=== PATIENT | male | born 1945 | race Caucasian/White ===

== ENCOUNTER 2023-10-02 13:00 | Outpatient (RCR) | payer MEDICARE, OTHER, SELFPAY | END 2023-10-02 14:19 | disposition home or self-care (01) | LOC: HO.PTCHIC 13:00 | PROVIDERS: PCP Physician Assistant; Visit Provider Orthopaedic Surgery | DX: S72.002D Fracture of unspecified part of neck of left femur, subsequent encounter for closed fracture with routine healing (principal) | CPT/HCPCS: 97110; 97112; 97140; 97161; 97530 ==

== ENCOUNTER 2024-08-22 11:14 | Outpatient (AMB) | payer MEDICARE, OTHER, SELFPAY ==
--- NOTE | 2024-08-22 11:15 | A.OFFVIS_ITS ---
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 Pt states he had UTI and bladder scans done, which is what prompted testing. 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 This all began as a CT abdomen and pelvis with and without contrast for gross hematuria. At that time who was found to have diffuse urinary bladder in addition he had renal artery stenosis along with occlusion of the aorta. This was on CAT scan dated 07/16/2024. He reports that he quit smoking approximately 15 years ago and at that time was smoking a proximally a half a pack per day. He is a longstanding diabetic. In addition there was concern about renal artery stenosis. At the current time he is being maintained on 3 blood pressure medications but appears to be well controlled as at the time of our visit his blood pressure was 116/60. In terms of his peripheral vascular disease he endorses that he can walk a proximally a half a block prior to any significant difficulty. He has been attributing most of this to knee pain. He now presents to us for vascular evaluation. Of note he is being maintained on aspirin and high-dose statin. Review of Systems Const All systems reviewed & are unremarkable except as noted in HPI and below Reports no additional complaints ENT Reports Normal hearing present Card Denies chest pain, Denies chest pain at rest, Denies chest pain with activity and Denies pedal edema Resp Denies cough GI Denies abdominal pain Musc Denies abnormal gait, Denies muscle cramps and Denies radiating pain into limb Skin/Breast Denies skin ulcer and Denies wounds Neuro Reports Normal hearing present and Denies abnormal gait Psych Reports no additional complaints Physical Exam Vital Signs: BMI result Body Mass Index 27.4 Const General: cooperative, healthy appearing and comfortable Orientation/consciousness: oriented to person, oriented to place and oriented to time HEENT Head: Yes normal to inspection Neck Neck: Yes normal visual inspection Carotids: no bruits Chest Chest palpation & inspection: normal inspection of the chest Resp Effort & Inspection: normal respiratory effort and able to speak in complete sentences Auscultation: clear to auscultation bilaterally, no crackles, no rales, no rhonchi and no wheezes Cardio Other: Bilateral DP signals Rate: regular rate Rhythm: regular rhythm Heart sounds: S1 normal heart sound present and S2 normal heart sound present Bruits: no carotid bruits Peripheral pulses: Peripheral pulses 2+ throughout GI Inspection: Yes normal to inspection Skin Wounds: no wounds Hair: normal Neuro General: oriented to person, oriented to place and oriented to time Cranial nerves: Yes CN's II-XII intact bilaterally and Yes Normal hearing present Cognition (Neuro): normal cognition Motor exam (neuro): 5/5 motor strength present throughout Extrem Other: venous exam: No significant superficial varicosities or spider telangiectasias, minimal edema General: No clubbing, No cyanosis and No edema Psych Appearance: grossly normal Mental Status: mental status grossly normal Speech and movement: Normal speech and movement present Results Reviewed Results Reviewed: CT scan report from 07/16/2024 written report and images were reviewed. Example PIC is attached above Assessment & Plan Assessment & Plan (1) Aortoiliac occlusive disease: Code(s): I74.09 - Other arterial embolism and thrombosis of abdominal aorta Category: Medical Plan: The biggest concern here is the aortoiliac occlusive disease. It does appear he has compensated for this but is able to walk about a half a block at most. He was quite anxious about this overall situation and was quite inquisitive about the future steps and potential surgery. We did discuss basic risk factor modification. In addition we did discuss the importance of ambulation and getting steps in daily. Upon return I would like to get a better sense of the true distance of his claudication and we did discuss keeping a walking log. He will follow up with us after lower extremity arterial testing. (2) PAD (peripheral artery disease): Code(s): I73.9 - Peripheral vascular disease, unspecified Category: Medical Plan: It is clear that the patient has inflow disease. I have taken the liberty of ordering noninvasive arterial testing to ensure that he does not have significant outflow disease as well. I did review the pathophysiology of peripheral vascular disease with the patient. In addition we did discuss routine conservative measures including a healthy diet and the importance of exercise and ambulation. We did discuss risk factor modification. Once again the patient will follow up with us after testing (3) Renal artery stenosis: Code(s): I70.1 - Atherosclerosis of renal artery Category: Medical Plan: At the current time his renal artery stenosis appears to be at a stable point. His blood pressure is being maintained at 116/60. He is currently being maintained on 3 antihypertensives including amlodipine 10 mg lisinopril 40 mg and metoprolol 50 mg b.i.d.. At the current time will hold off on any interventions until we get a better picture regarding his peripheral vascular disease status. Thank you for allowing us to assist in his care. If there are any questions or concerns please do not hesitate to contact us. Orders: Orders 2 US arterial duplex LE BI 1 Week I73.9 - Peripheral vascular disease, unspecified Coding Level of Care Code New Pt Level 4 (79075) Complex EM visit Add On G2211 Diagnoses Aortoiliac occlusive disease I74.09 PAD (peripheral artery disease) I73.9 Renal artery stenosis I70.1
[2024-08-22 11:16] VITALS: BMI 27.4
== END 2024-08-22 12:33 | disposition home or self-care (01) ==
LOC: HO.HVS 11:14
PROVIDERS: PCP Physician Assistant; Visit Provider Surgery Vascular Surgery
DX: I74.09 Other arterial embolism and thrombosis of abdominal aorta (principal); I73.9 Peripheral vascular disease, unspecified; I70.1 Atherosclerosis of renal artery
CPT/HCPCS: 99204; G2211

== ENCOUNTER → 2024-08-22 11:14 | Outpatient (BNVA) | payer MEDICARE, OTHER, SELFPAY | PROVIDERS: PCP Physician Assistant; Visit Provider Surgery Vascular Surgery | DX: I74.09 Other arterial embolism and thrombosis of abdominal aorta (principal); I73.9 Peripheral vascular disease, unspecified; I70.1 Atherosclerosis of renal artery | CPT/HCPCS: 99202 ==

== ENCOUNTER 2024-10-02 13:46 | Outpatient (REF) | payer MEDICARE, OTHER, SELFPAY ==
--- NOTE | ~2024-10-02 | US_ITS ---
EXAMINATION: Noninvasive assessment of the bilateral lower extremities with ARTERIAL DUPLEX, ANKLE BRACHIAL INDICES (ABIs), and PULSE VOLUME RECORDINGS (PVRs). CLINICAL INFORMATION: Peripheral vascular disease, unspecified. TECHNIQUE: Duplex Doppler techniques with waveform analysis and measurement of velocities in the bilateral common femoral, profunda femoris, superficial femoral, popliteal and tibial arteries were performed. Additionally, ankle pulse volume recordings, ankle pressure measurements and ankle brachial indices were obtained of the lower extremity arterial system bilaterally. The study was performed only at rest. COMPARISON: None FINDINGS: DIRECT DUPLEX DOPPLER FINDINGS: RIGHT LEG: Common femoral artery: 77 cm/s, phasicity: Monophasic. Profunda femoris artery: 205 cm/s, phasicity: Monophasic. Superficial femoral artery (proximal): 42 cm/s, phasicity: Monophasic. Superficial femoral artery (mid): 31 cm/s, phasicity: Monophasic. Superficial femoral artery (distal): 20 cm/s, phasicity: Monophasic. Popliteal artery: 13 cm/s, phasicity: Monophasic. Posterior tibial artery: 15 cm/s, phasicity: Monophasic. Peroneal artery: No color Doppler flow registered. Anterior tibial artery: 24 cm/s, phasicity: Monophasic. Dorsalis pedis artery: 13 cm/s, phasicity:Monophasic. LEFT LEG: Common femoral artery: 40 cm/s, phasicity: Monophasic. Profunda femoris artery: 24 cm/s, phasicity: Monophasic. Superficial femoral artery (proximal): 50 cm/s, phasicity: Monophasic. Superficial femoral artery (mid): 75 cm/s, phasicity: Monophasic. Superficial femoral artery (distal): 29 cm/s, phasicity: Monophasic. Popliteal artery: 28 cm/s, phasicity: Monophasic. Posterior tibial artery: 11 cm/s, phasicity: Monophasic. Peroneal artery: No color Doppler flow registered. Anterior tibial artery: 15 cm/s, phasicity: Monophasic. Dorsalis pedis artery: 6 cm/s, phasicity: Monophasic. BRACHIAL PRESSURES: Right: Nondiagnostic/nonaudible. Left: Nondiagnostic/nonaudible. ANKLE PRESSURES: Nondiagnostic/nonaudible. ANKLE-BRACHIAL INDEX: Nondiagnostic/nonaudible. ANKLE PVR WAVEFORMS: Right: Abnormal Left: Abnormal US/US arterial duplex BI w/ ABBIE IMPRESSION: Right leg: Severe inflow disease throughout the interrogated arteries. Left leg: Severe inflow disease throughout the interrogated arteries. ABBIE Reference: - >1.4 = calcified vessels - 0.9 - 1.4 = normal - no significant arterial disease - 0.7 - 0.89 = mild peripheral arterial disease - 0.51 - 0.69 = moderate peripheral arterial disease - d 0.50 = severe peripheral arterial disease - < .30 = critical arterial disease Electronically signed by: Hardeep Lozano MD 10/03/2024 09:14 AM EDT
--- OUTSIDE RECORDS SUMMARY | 2024-10-02 15:39 | XMS_ITS | Encounter Summary ---
Author Organization [facility], Address [address] [place] [address] Phone Care Team Providers Care Community Service Manager Name Role Phone JabariParis Primary Care Provider [phone] Encounter Details Date Type Department Care Team (Late st Contact Info) Description 03/09/2023 Documentation Only [facility] [address] [place] [phone] Eduardo Antonio MD [address] [place] [address] [place] [address] Social History Tobacco Use Types Packs/Day Years Used Date Smoking Tobacco: Never Assessed Sex and Gender Information Value Date Recorded Sex Assigned at Not on file Legal Sex Male 3:29 PM EDT Gender Identity Not on file Sexual Orientation Not on file documented as of this encounter Plan of Treatment Upcoming Encounters Date Type Department Care Team (Late st Contact Info) Description 09/05/2025 10:30 AM EDT Office Visit [facility] [address] [place] [phone] Eduardo Antonio MD [address] [place] [address] [place] [address] documented as of this encounter Visit Diagnoses Not on filedocumented in this encounter Care Teams Community Service Manager Relationship Specialty Start Date End Date [address] [place] [address] PCP - General 09/05/24 documented as of this encounter
== END 2024-10-02 13:47 | disposition home or self-care (01) ==
LOC: HO.US 13:46
PROVIDERS: Visit Provider Surgery Vascular Surgery
DX: I73.9 Peripheral vascular disease, unspecified (principal)
CPT/HCPCS: 93922; 93925

== ENCOUNTER → 2024-10-02 13:48 | Outpatient (BNV) | payer MEDICARE, OTHER, SELFPAY | PROVIDERS: Visit Provider Radiology Diagnostic Radiology | DX: I73.9 Peripheral vascular disease, unspecified (principal) | CPT/HCPCS: 93922; 93925 ==

== ENCOUNTER 2024-10-29 13:02 | Outpatient (AMB) | payer MEDICARE, OTHER, SELFPAY ==
--- NOTE | 2024-10-29 13:12 | A.OFFVIS_ITS ---
Intake Visit Reasons: follow up s/p Arterial US 10/02/24 Intake Note: Patient presents for s/p arterial US. No complaints. Accompanied by: Self / Same As Patient Allergies amoxicillin (AMOXICILLIN) Allergy (Unknown, Verified 10/29/24 13:13) ANGIOEDEMA Penicillins (PENICILLINS) Allergy (Unknown, Verified 10/29/24 13:13) ANGIOEDEMA HPI HPI follow up s/p Arterial US 10/02/24: Details: Very complex 79-year-old female presents for follow-up evaluation regarding peripheral vascular disease. She has undergone noninvasive testing. She had a previous CT of the abdomen and pelvis without contrast for gross hematuria. At that time they were concerned about renal artery stenosis along with aortic occlusive disease. She reports quitting smoking about 15 years ago in his longstanding diabetic. Current time she is requiring 3 blood pressure medications. She requires the use of walker to ambulate. She is on an aspirin and high-dose statin. She now presents for follow-up. Of note she can barely walk a half a block Review of Systems Const All systems reviewed & are unremarkable except as noted in HPI and below Reports no additional complaints ENT Reports Normal hearing present Card Denies chest pain, Denies chest pain at rest, Denies chest pain with activity and Denies pedal edema Resp Denies cough GI Denies abdominal pain Musc Denies abnormal gait, Denies muscle cramps and Denies radiating pain into limb Skin/Breast Denies skin ulcer and Denies wounds Neuro Reports Normal hearing present and Denies abnormal gait Psych Reports no additional complaints Physical Exam Const General: cooperative, healthy appearing and comfortable Orientation/consciousness: oriented to person, oriented to place and oriented to time HEENT Head: Yes normal to inspection Neck Neck: Yes normal visual inspection Carotids: no bruits Chest Chest palpation & inspection: normal inspection of the chest Resp Effort & Inspection: normal respiratory effort and able to speak in complete sentences Auscultation: clear to auscultation bilaterally, no crackles, no rales, no rhonchi and no wheezes Cardio Other: Bilateral DP signals Rate: regular rate Rhythm: regular rhythm Heart sounds: S1 normal heart sound present and S2 normal heart sound present Bruits: no carotid bruits GI Inspection: Yes normal to inspection Skin Wounds: no wounds Hair: normal Neuro General: oriented to person, oriented to place and oriented to time Cranial nerves: Yes CN's II-XII intact bilaterally and Yes Normal hearing present Cognition (Neuro): normal cognition Motor exam (neuro): 5/5 motor strength present throughout Extrem Other: venous exam: No significant superficial varicosities or spider telangiec tasias, minimal edema General: No clubbing, No cyanosis and No edema Psych Appearance: grossly normal Mental Status: mental status grossly normal Speech and movement: Normal speech and movement present Results Reviewed Results Reviewed: Noninvasive arterial testing dated 10/02/2024 demonstrates bilateral monophasic flow. They were unable to calculate ABIs. Assessment & Plan Assessment & Plan (1) PAD (peripheral artery disease): Code(s): I73.9 - Peripheral vascular disease, unspecified Category: Medical Plan: I had an extensive discussion with the patient regarding the extent of her peripheral vascular disease. I do think it would be beneficial to start with an endovascular intervention in at least evaluation. It would enable me to better visualize the renals along with lower extremities and potentially intervene on the iliacs. He spent a fair amount of time explaining this to the patient. At the current time she politely refused treatment. She stated she had several other issues going on and was in the process of being worked up for her cataracts along with a few other medical issues. We agreed on routine six-month follow-up to reassess her status at that time. We will once again discuss the potential for endovascular intervention. Should there be any changes happy to see her back sooner. Thank you for allowing us to assist in her care. If there are any questions or concerns please do not hesitate to contact us. (2) Renal artery stenosis: Code(s): I70.1 - Atherosclerosis of renal artery Category: Medical Plan: See above Coding Level of Care Code Est Pt Level 4 (81474) Diagnoses PAD (peripheral artery disease) I73.9 Renal artery stenosis I70.1
--- OUTSIDE RECORDS SUMMARY | 2024-10-29 13:44 | XMS_ITS | Encounter Summary ---
Author Organization [facility], Address [address] [place] [address] Phone Care Team Providers Care Director Digital Name Role Phone JabariParis Primary Care Provider [phone] Encounter Details Date Type Department Care Team (Late st Contact Info) Description 03/09/2023 Documentation Only [facility] [address] [place] [phone] Eduardo Antonio MD [address] [place] [address] [place] [address] Social History Tobacco Use Types [...] Visit [facility] [address] [place] [phone] Eduardo Antonio MD [address] [place] [address] [place] [address] documented as of this encounter Visit Diagnoses Not on filedocumented in this encounter Care Teams Director Digital Relationship Specialty Start Date End Date [address] [place] [address] PCP - General 09/05/24 documented as of this encounter
== END 2024-10-29 13:36 | disposition home or self-care (01) ==
LOC: HO.HVS 13:05
PROVIDERS: Visit Provider Surgery Vascular Surgery
DX: I73.9 Peripheral vascular disease, unspecified (principal); I70.1 Atherosclerosis of renal artery
CPT/HCPCS: 99214

== ENCOUNTER → 2024-10-29 13:02 | Outpatient (BNVA) | payer MEDICARE, OTHER, SELFPAY | PROVIDERS: Visit Provider Surgery Vascular Surgery | DX: E11.51 Type 2 diabetes mellitus with diabetic peripheral angiopathy without gangrene (principal); I70.1 Atherosclerosis of renal artery | CPT/HCPCS: 99212 ==

== ENCOUNTER 2024-12-04 05:41 | Day surgery (SDC) | payer MEDICARE, OTHER, SELFPAY ==
--- OUTSIDE RECORDS SUMMARY | 2024-11-22 09:35 | XMS_ITS | Encounter Summary ---
Author Organization [facility], Address [address] [place] [address] Phone Care Team Providers Care Electrical Machinist Name Role Phone JabariParis Primary Care Provider [phone] Encounter Details Date Type Department Care Team (Late st Contact Info) Description 03/09/2023 Documentation Only [facility] [address] [place] [phone] Eduardo Antonio MD [address] [place] [address] [place] [address] Social History Tobacco Use Types [...] Visit [facility] [address] [place] [phone] Eduardo Antonio MD [address] [place] [address] [place] [address] documented as of this encounter Visit Diagnoses Not on filedocumented in this encounter Care Teams Electrical Machinist Relationship Specialty Start Date End Date [address] [place] [address] PCP - General 09/05/24 documented as of this encounter
[2024-12-04] VITALS (16 sets, daily range): BP systolic 110–180; BP diastolic 55–81; PULSE 65–88; RESP 10–18; TEMP 36.3–36.6; O2SAT 94–100; BMI 25.2
[2024-12-04 06:51] LABS: Hematocrit 44.4 % (42.0-52.0); Hemoglobin 14.9 g/dl (14.0-18.0); Imm Gran Abs Auto 0.13 X10*3/uL (0.00-0.03); Imm Gran Pct Auto 1.1 % (0.0-0.4); Lymphocytes Absolute Auto 1.8 X10*3/uL (1.2-4.9); MANUAL DIFF FLAG NO; Mean Corpuscular HGB Conc 33.6 g/dl (31.0-36.0); Mean Corpuscular Hemoglobin 28.7 pg (27.0-33.0); Mean Corpuscular Volume 85.5 fL (80.0-98.0); NRBC Abs Auto 0.000 X10*3/uL (0.0-0.012); NRBC Pct Auto 0.0 /100WBC (0.0-0.2); Platelet Count 201 X10*3/uL (160-400); Red Blood Count 5.19 X10*6/uL (4.60-5.80); White Blood Count 11.7 X10*3/uL (4.8-10.8)
[2024-12-04 07:14] LABS: Glucose, Whole Blood 125 mg/dL (60-115)
[2024-12-04 07:18] LABS: Blood Urea Nitrogen 30 mg/dL (9-16); Creatinine Clr Calc Pharmacy 34.9; Estimated Glomerular Filt Rate 47
--- NOTE | 2024-12-04 08:42 | P.OP_ITS ---
Operative Note Operative Note Date of Service: 12/04/24 Narrative: Angiogram report from [facility] Preoperative diagnosis: Atherosclerosis of bilateral lower extremity with severe activity limiting claudication Postoperative diagnosis: Same Procedure: 1. Ultrasound-guided bilateral common femoral access Surgeon:Hao Chapa M.D., FRED, B[place] Manager Critical Care:None Anesthesia: Local with moderate conscious sedation. Total intraservice moderate sedation time was 31 minutes. I monitored the patient's level of consciousness and physiologic status continuously throughout the procedure. Specimens:none Drains:none Estimated blood loss: Less than 10 ml Radiation Dose: 20.3 mGy Implant: None Indications: Complex 71-year-old gentleman with a history of vascular disease and renal artery stenosis now presents for endovascular intervention. The patient has signed the informed consent after reviewing risks, complications, benefits, and alternatives previously discussed with the patient. The patient was given the opportunity to ask any additional questions or voice any concerns. All questions were answered to the patient's satisfaction. Procedure in detail: Patient was brought to the angiography suite prior to which a time-out was called for patient identification and site verification. Bilateral groins were prepped and draped in the standard surgical fashion. Under ultrasound guidance right common femoral was punctured with micro puncture needle and wire. We were unable to get into the vessel. Multiple attempts with multiple orthogonal views were undertaken still unsuccessful we then turned our attention to the left common femoral. We were unable to access this as well. Extremely calcified common femoral disease. After several attempts and due to patient discomfort we had to terminate the procedure. Direct pressure was held for adequate hemostasis. Patient tolerated the procedure well and returned to recovery with stable vitals. Interpretation of films: 1. Ultrasound demonstrates severely calcified bilateral common femoral arteries Conclusion: 1. Unsuccessful diagnostic angiogram. Known history of aortoiliac disease. May be best manage conservatively. If desires to move forward will need CT angio with runoff. 2. Anticoagulation status: No change This note is constructed using voice recognition software. While every effort has been made to ensure accuracy, real estate processor errors may have been included. Thank you for allowing me to participate in the care of your patient. Yours sincerely, Hao Chapa MD, FACS, R.P.V.I.
== END 2024-12-04 10:15 | disposition home or self-care (01) ==
PROVIDERS: Visit Provider Surgery Vascular Surgery
DX: E11.51 Type 2 diabetes mellitus with diabetic peripheral angiopathy without gangrene (principal); Z53.8 Procedure and treatment not carried out for other reasons; I70.213 Atherosclerosis of native arteries of extremities with intermittent claudication, bilateral legs; I70.1 Atherosclerosis of renal artery; Z79.4 Long term (current) use of insulin; Z79.84 Long term (current) use of oral hypoglycemic drugs; Z79.85 Long-term (current) use of injectable non-insulin antidiabetic drugs; Z87.891 Personal history of nicotine dependence
CPT/HCPCS: 36415; 75630; 76937; 82565; 82947; 84520; 85025; 99152; 99153; C1769; C1887; C1894; J1644; J2003; J2250; J3010; Q9967

== ENCOUNTER → 2024-12-04 05:41 | Outpatient (BNV) | payer MEDICARE, OTHER, SELFPAY | PROVIDERS: Visit Provider Surgery Vascular Surgery | DX: I70.213 Atherosclerosis of native arteries of extremities with intermittent claudication, bilateral legs (principal) | CPT/HCPCS: 36140; 76937; 99152 ==

== ENCOUNTER 2024-12-26 12:55 | Outpatient (AMB) | payer MEDICARE, OTHER, SELFPAY ==
--- NOTE | 2024-12-26 13:10 | MHC.OFFVIS ---
Vital Signs 12/26/24 13:10 Height 5 ft 6 in Intake Visit Reasons: 2 week follow up s/p Angiogram 12/04/24 Intake Note: 2 week follow up angiogram 12/04/24. Accompanied by: Self / Same As Patient Allergies amoxicillin (AMOXICILLIN) Allergy (Unknown, Verified 12/26/24 13:12) ANGIOEDEMA Penicillins (PENICILLINS) Allergy (Unknown, Verified 12/26/24 13:12) ANGIOEDEMA HPI HPI 2 week follow up s/p Angiogram 12/04/24: Details: Complex 79-year-old gentleman history of peripheral vascular disease and renal artery stenosis presented for potential endovascular intervention on 12/04/2024. Unfortunately we were unable to gain access and obtain an angiogram. At the current time he is able to walk about a half a block and is able to do his grocery shopping. He now presents for postprocedure follow-up. [facility] Medical History Diabetes Renal artery stenosis PAD (peripheral artery disease) Surgical History History of repair of left hip joint Social History Are you a primary assurance services manager health care to a significant other at home: No Do you presently have visiting nurse or other home services: No Patient Tobacco Use Status: Former Tobacco user Second Hand Smoke Exposure: No Review of Systems Const All systems reviewed & are unremarkable except as noted in HPI and below Reports no additional complaints ENT Reports Normal hearing present Card Denies chest pain, Denies chest pain at rest, Denies chest pain with activity and Denies pedal edema Resp Denies cough GI Denies abdominal pain Musc Denies abnormal gait, Denies muscle cramps and Denies radiating pain into limb Skin/Breast Denies skin ulcer and Denies wounds Neuro Reports Normal hearing present and Denies abnormal gait Psych Reports no additional complaints Physical Exam Const General: cooperative, healthy appearing and comfortable Orientation/consciousness: oriented to person, oriented to place and oriented to time HEENT Head: Yes normal to inspection Neck Neck: Yes normal visual inspection Carotids: no bruits Chest Chest palpation & inspection: normal inspection of the chest Resp Effort & Inspection: normal respiratory effort and able to speak in complete sentences Auscultation: clear to auscultation bilaterally, no crackles, no rales, no rhonchi and no wheezes Cardio Rate: regular rate Rhythm: regular rhythm Heart sounds: S1 normal heart sound present and S2 normal heart sound present Bruits: no carotid bruits Peripheral pulses: Peripheral pulses 2+ throughout GI Inspection: Yes normal to inspection Skin Wounds: no wounds Hair: normal Neuro General: oriented to person, oriented to place and oriented to time Cranial nerves: Yes CN's II-XII intact bilaterally and Yes Normal hearing present Cognition (Neuro): normal cognition Motor exam (neuro): 5/5 motor strength present throughout Extrem Other: venous exam: No significant superficial varicosities or spider telangiectasias, minimal edema General: No clubbing, No cyanosis and No edema Psych Appearance: grossly normal Mental Status: mental status grossly normal Speech and movement: Normal speech and movement present Results Reviewed Results Reviewed: Angiogram from 12/04/2024 was reviewed Assessment & Plan Assessment & Plan (1) Aortoiliac occlusive disease: Code(s): I74.09 - Other arterial embolism and thrombosis of abdominal aorta Category: Medical Plan: In short patient has severe aortoiliac occlusive disease. He will require open aortobifem if that is indicated. That being said at the current time his lower extremities are stable and he is able to carry out his daily functions. Due to his overall age and status would be hesitant to jump into such a big operation. At the current time would manage him conservatively. We will plan for 6 month arterial surveillance for him. (2) Renal artery stenosis: Code(s): I70.1 - Atherosclerosis of renal artery Category: Medical Plan: At the current time appears to be stable. Blood pressure appears to be well maintained. Once again would like to manage this as conservatively as possible as gaining access to the renals because of his aortoiliac occlusive disease would be a bit of a challenge. Thank you for allowing us to assist in his care Orders: Orders US arterial duplex LE BI 6 Months I73.9 - Peripheral vascular disease, unspecified Coding Level of Care Code Est Pt Level 4 (34024) Diagnoses Aortoiliac occlusive disease I74.09 Renal artery stenosis I70.1
--- OUTSIDE RECORDS SUMMARY | 2024-12-26 14:14 | XMS_ITS | Encounter Summary ---
Author Organization [facility] Address [address] [place] [address] Phone Care Team Providers Care Necktie Maker Name Role Phone JabariParis Primary Care Provider [phone] Encounter Details Date Type Department Care Team (Late st Contact Info) Description 02/27/2024 Documentation Only [facility] [address] [place] [address] Janelle Britt [address] [place] [address] Social History Tobacco Use Types Packs/Day Years [...] Visit [facility] [place] [address] Simone AMEZQUITA [address] [place] [phone] Eduardo Antonio MD [address] [place] [address] [place] [phone] documented as of this encounter Visit Diagnoses Not on filedocumented in this encounter Care Teams Necktie Maker Relationship Specialty Start Date End Date Paris Barboza [address] [place] [address] PCP - General 09/05/24 documented as of this encounter
--- OUTSIDE RECORDS SUMMARY | 2024-12-26 14:14 | XMS_ITS | Encounter Summary ---
Author Organization [facility] Address [address] [place] [address] Phone Care Team Providers Care Copyman Name Role Phone JabariParis Primary Care Provider [phone] Encounter Details Date Type Department Care Team (Late st Contact Info) Description 09/02/2024 Documentation Only [facility] [address] [place] [address] Janelle Britt [address] [place] [address] Social History Tobacco Use Types [...] Visit [facility] [place] Dr Simone AMEZQUITA [address] [place] [phone] Eduardo Antonio MD [address] [place] [address] [place] [phone] documented as of this encounter Visit Diagnoses Not on filedocumented in this encounter Care Teams Copyman Relationship Specialty Start Date End Date Paris Barboza [address] [place] [address] PCP - General 09/05/24 documented as of this encounter
--- OUTSIDE RECORDS SUMMARY | 2024-12-26 14:14 | XMS_ITS | Encounter Summary ---
Author Organization [facility], Address [address] [place] [address] Phone Care Team Providers Care Molding Machine Tender Name Role Phone Jabari Paris Primary Care Provider [phone] Encounter Details Date Type Department Care Team (Late st Contact Info) Description 11/18/2022 Documentation Only [facility] [address] [place] [phone] Nica Sher FNP [address] [place] [phone] Social History Tobacco Use Types Packs/Day Years [...] Visit [facility] [address] [place] [phone] Eduardo Antonio MD [address] [place] [phone] documented as of this encounter Visit Diagnoses Not on filedocumented in this encounter Care Teams Molding Machine Tender Relationship Specialty Start Date End Date JabariNadeena [address] [place] [address] PCP - General 09/05/24 documented as of this encounter
--- OUTSIDE RECORDS SUMMARY | 2024-12-26 14:14 | XMS_ITS | Encounter Summary ---
Author Organization [facility] Address [address] [place] [address] Phone Care Team Providers Care Sheet Metal Supervisor Name Role Phone JabariParis Primary Care Provider [phone] Encounter Details Date Type Department Care Team (Late st Contact Info) Description 02/28/2024 Documentation Only [facility] [address] [place] [address] Janelle Britt [address] [place] [phone] Social History Tobacco Use Types Packs/Day [...] Visit [facility] [place] [address] Simone AMEZQUITA [address] [place] [phone] Eduardo Antonio MD [address] [place] [address] [place] [phone] documented as of this encounter Visit Diagnoses Not on filedocumented in this encounter Care Teams Sheet Metal Supervisor Relationship Specialty Start Date End Date Paris Barboza [address] [place] [address] PCP - General 09/05/24 documented as of this encounter
--- OUTSIDE RECORDS SUMMARY | 2024-12-26 14:14 | XMS_ITS | Encounter Summary ---
Author Organization [facility] Address [address] [place] [address] Phone Care Team Providers Care External Relations Manager Name Role Phone JabariParis Primary Care Provider [phone] Encounter Details Date Type Department Care Team (Late st Contact Info) Description 09/02/2024 Documentation Only [facility] [address] [place] [address] Janelle Britt [address] [place] [address] Social History Tobacco Use Types [...] Visit [facility] [place] [address] Simone AMEZQUITA [address] [place] [phone] Eduardo Antonio MD [address] [place] [address] [place] [phone] documented as of this encounter Visit Diagnoses Not on filedocumented in this encounter Care Teams External Relations Manager Relationship Specialty Start Date End Date Paris Barboza [address] [place] [address] PCP - General 09/05/24 documented as of this encounter
--- OUTSIDE RECORDS SUMMARY | 2024-12-26 14:14 | XMS_ITS | Encounter Summary ---
Author Organization [facility], Address [address] [place] [address] Phone Care Team Providers Care Probate Clerk Name Role Phone JabariParis Primary Care Provider [phone] Encounter Details Date Type Department Care Team (Late st Contact Info) Description 03/09/2023 Documentation Only [facility] [address] Simone [address] [place] [phone] Eduardo Antonio MD [address] [place] [address] [place] [address] Social History Tobacco Use Types [...] Visit [facility] [address] [place] [phone] Eduardo Antonio MD [address] [place] [address] [place] [address] documented as of this encounter Visit Diagnoses Not on filedocumented in this encounter Care Teams Probate Clerk Relationship Specialty Start Date End Date Paris Barboza [address] [place] [address] PCP - General 09/05/24 documented as of this encounter
--- OUTSIDE RECORDS SUMMARY | 2024-12-26 14:14 | XMS_ITS | Encounter Summary ---
Author Organization [facility] Address [address] [place] [address] Phone Care Team Providers Care Operations Team Leader Name Role Phone JabariParis Primary Care Provider [phone] Encounter Details Date Type Department Care Team (Late st Contact Info) Description 11/03/2022 Documentation Only [facility] [address] [place] [phone] Nica Sher FNP [address] [place] [phone] Social History Tobacco Use Types Packs/Day Years [...] Visit [facility] [place] [address] Simone AMEZQUITA [address] [place] [phone] Eduardo Antonio MD [address] [place] [address] [place] [phone] documented as of this encounter Visit Diagnoses Not on filedocumented in this encounter Care Teams Operations Team Leader Relationship Specialty Start Date End Date Paris Barboza [address] [place] [address] PCP - General 09/05/24 documented as of this encounter
--- OUTSIDE RECORDS SUMMARY | 2024-12-26 14:14 | XMS_ITS | Encounter Summary ---
Author Organization [facility] Address [address] [place] [address] Phone Care Team Providers Care Rouge Sifter And Miller Name Role Phone JabariParis Primary Care Provider [phone] Encounter Details Date Type Department Care Team (Late st Contact Info) Description 08/22/2023 Documentation Only [facility] [address] [place] [address] Janelle Britt [address] [place] [phone] Social History Tobacco Use Types Packs/Day [...] Visit [facility] [place] [address] Simone AMEZQUITA [address] [place] [phone] Eduardo Antonio MD [address] [place] [address] [place] [phone] documented as of this encounter Visit Diagnoses Not on filedocumented in this encounter Care Teams Rouge Sifter And Miller Relationship Specialty Start Date End Date Paris Barboza [address] [place] [address] PCP - General 09/05/24 documented as of this encounter
--- OUTSIDE RECORDS SUMMARY | 2024-12-26 14:14 | XMS_ITS | Encounter Summary ---
Author Organization [facility] Address [address] [place] [address] Phone Care Team Providers Care Assembly Press Operator Name Role Phone JabariParis Primary Care Provider [phone] Encounter Details Date Type Department Care Team (Late st Contact Info) Description 09/02/2024 Documentation Only [facility] [address] [place] [address] Janelle Britt [address] [place] [phone] Social History Tobacco Use Types [...] Visit [facility] [place] [address] Simone AMEZQUITA [address] [place] [phone] Eduardo Antonio MD [address] [place] [address] [place] [phone] documented as of this encounter Visit Diagnoses Not on filedocumented in this encounter Care Teams Assembly Press Operator Relationship Specialty Start Date End Date Paris Barboza [address] [place] [address] PCP - General 09/05/24 documented as of this encounter
--- OUTSIDE RECORDS SUMMARY | 2024-12-26 14:14 | XMS_ITS | Clinical Summary ---
Author Organization [facility], Address [address] [place] [address] [place] [address] Phone Care Team Providers Care Highway Maintenance Technician Name Role Phone Paris Barboza Primary Care Provider [phone] Allergies Active Allergy Reactions Criticality Noted Date Comments Amoxicillin 03/22/2023 Medications * This document contains information received from the source organization and may not represent a complete record from that organization. amLODIPine (NORVASC) 10 MG tablet Take 10 mg by mouth 1 (one) time each day 3 Active atorvastatin (LIPITOR) 80 MG tablet Take 80 mg by mouth 1 (one) time each day 3 Active chlorthalidone 25 MG tablet Take 25 mg by mouth 1 (one) time each day 3 Active glipiZIDE (GLUCOTROL) 10 MG tablet 3 Active Basaglar KwikPen 100 UNIT/ML injection INJET 14 UNITS SUBCUTANEOUSLY DAILY 3 Active lisinopril 40 MG tablet Take 40 mg by mouth 1 (one) time each day 3 Active metFORMIN (GLUCOPHAGE) 500 MG tablet TAKE 2 TABLETS BY MOUTH EVERY MORNING AND 1 TABLET EVERY EVENING 3 Active metoprolol tartrate (LOPRESSOR) 50 MG tablet Take 50 mg by mouth in the morning and 50 mg in the evening. 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 Encounters Date Type Department Care Team Description 11/06/2024 [facility]ill [facility] [place] [phone] Eduardo Antonio MD from Last 3 Months Social History Tobacco Use Types Packs/Day Years Used Date Smoking Tobacco: Never Assessed Sex and Gender Information Value Date Recorded Sex Assigned at Not on file Legal Sex Male 3:29 PM EDT Gender Identity Not on file Sexual Orientation Not on file Plan of Treatment Upcoming Encounters Date Type Department Care Team (Late st Contact Info) Description 09/05/2025 10:30 AM EDT Office [facility] [address] [place] [phone] Eduardo Antonio MD [address] [place] [address] [place] [phone] Health Maintenance Due Date Last Done Comments Pneumococcal Vaccine: 50+ Ye ars (1 of 2 - PCV) 1964 Diabetes: Hemoglobin A1C 02/03/2023 Diabetes: Ophthalmology Exam 02/03/2023 Diabetes: Pedal Pulse Checked 02/03/2023 Diabetes: Sensory Foot Exam 02/03/2023 Diabetes: Visual Foot Exam 02/03/2023 Influenza Vaccine (#1) 2024 Hepatitis B Vaccine Aged Out No longe r eligible based on patient's age to complete this topic Insurance Medicare [facility] Care Teams Highway Maintenance Technician Relationship Specialty Start Date End Date Paris Barboza [address] [place] [address] PCP - General 09/05/24
--- OUTSIDE RECORDS SUMMARY | 2024-12-26 14:14 | XMS_ITS | Encounter Summary ---
Author Organization [facility] Address [address] [place] [address] Phone Care Team Providers Care Senior Compliance Officer Name Role Phone JabariParis Primary Care Provider [phone] Encounter Details Date Type Department Care Team (Late st Contact Info) Description 08/30/2024 Documentation Only [facility] [address] [place] [address] Janelle Britt [address] [place] [address] Social History Tobacco Use Types [...] Visit [facility] [place] Dr Simone AMEZQUITA [address] [place] [phone] Eduardo Antonio MD [address] [place] [address] [place] [phone] documented as of this encounter Visit Diagnoses Not on filedocumented in this encounter Care Teams Senior Compliance Officer Relationship Specialty Start Date End Date Paris Barboza [address] [place] [address] PCP - General 09/05/24 documented as of this encounter
--- OUTSIDE RECORDS SUMMARY | 2024-12-26 14:14 | XMS_ITS | Encounter Summary ---
Author Organization [facility], Address [address] [place] [address] Phone Care Team Providers Care Rag Shredder Name Role Phone JabariParis Primary Care Provider [phone] Encounter Details Date Type Department Care Team (Late st Contact Info) Description 08/21/2023 Documentation Only [facility] [address]one [address] [place] [phone] Janelle Britt [address] [place] [phone] Social History Tobacco Use Types Packs/Day Years [...] Visit [facility] [address] [place] [phone] Eduardo Antonio MD [address] [place] [phone] documented as of this encounter Visit Diagnoses Not on filedocumented in this encounter Care Teams Rag Shredder Relationship Specialty Start Date End Date Paris Barboza [address] [place] [address] PCP - General 09/05/24 documented as of this encounter
--- OUTSIDE RECORDS SUMMARY | 2024-12-26 14:14 | XMS_ITS | Encounter Summary ---
Author Organization [facility] Address [address] [place] [address] Phone Care Team Providers Care Laundry Agent Name Role Phone JabariParis Primary Care Provider [phone] Encounter Details Date Type Department Care Team (Late st Contact Info) Description 09/02/2024 Documentation Only [facility] [address] [place] [address] Janelle Britt [address] [place] [address] Social History Tobacco Use Types [...] Visit [facility] [place] [address] Simone AMEZQUITA [address] [place] [phone] Eduardo Antonio MD [address] [place] [address] [place] [phone] documented as of this encounter Visit Diagnoses Not on filedocumented in this encounter Care Teams Laundry Agent Relationship Specialty Start Date End Date Paris Barboza [address] [place] [address] PCP - General 09/05/24 documented as of this encounter
--- OUTSIDE RECORDS SUMMARY | 2024-12-26 14:14 | XMS_ITS | Encounter Summary ---
Author Organization [facility] Address [address] [place] [address] Phone Care Team Providers Care Computer Numerical Control Grinder Name Role Phone JabariParis Primary Care Provider [phone] Encounter Details Date Type Department Care Team (Late st Contact Info) Description 09/02/2024 Documentation Only [facility] [address] [place] [address] Janelle Britt [address] [place] [address] Social History Tobacco Use Types [...] Visit [facility] [place] [address] Simone AMEZ[address]ITA [address] [place] [phone] Eduardo Antonio MD [address] [place] [address] [place] [phone] documented as of this encounter Visit Diagnoses Not on filedocumented in this encounter Care Teams Computer Numerical Control Grinder Relationship Specialty Start Date End Date Paris Barboza [address] [place] [address] PCP - General 09/05/24 documented as of this encounter
== END 2024-12-26 13:38 | disposition home or self-care (01) ==
LOC: HO.HVS 12:56
PROVIDERS: Visit Provider Surgery Vascular Surgery
DX: I74.09 Other arterial embolism and thrombosis of abdominal aorta (principal); I70.1 Atherosclerosis of renal artery
CPT/HCPCS: 99214

== ENCOUNTER → 2024-12-26 12:55 | Outpatient (BNVA) | payer MEDICARE, OTHER, SELFPAY | PROVIDERS: Visit Provider Surgery Vascular Surgery | DX: I74.09 Other arterial embolism and thrombosis of abdominal aorta (principal); I70.1 Atherosclerosis of renal artery | CPT/HCPCS: 99212 ==

== ENCOUNTER 2025-01-15 21:27 | Emergency (ER) | payer MEDICARE, OTHER, SELFPAY ==
[2025-01-15 21:49] VITALS: BP 145/65; PULSE 72; RESP 16; TEMP 36.6; O2SAT 97; BMI 22.9
[2025-01-15 22:11] LABS: MANUAL DIFF FLAG NO
[2025-01-15 22:12] LABS: Hematocrit 43.8 % (42.0-52.0); Hemoglobin 15.4 g/dl (14.0-18.0); Imm Gran Abs Auto 0.09 X10*3/uL (0.00-0.03); Imm Gran Pct Auto 0.9 % (0.0-0.4); Lymphocytes Absolute Auto 1.9 X10*3/uL (1.2-4.9); Mean Corpuscular HGB Conc 35.2 g/dl (31.0-36.0); Mean Corpuscular Hemoglobin 29.3 pg (27.0-33.0); Mean Corpuscular Volume 83.4 fL (80.0-98.0); NRBC Abs Auto 0.000 X10*3/uL (0.0-0.012); NRBC Pct Auto 0.0 /100WBC (0.0-0.2); Platelet Count 213 X10*3/uL (160-400); Red Blood Count 5.25 X10*6/uL (4.60-5.80); White Blood Count 9.5 X10*3/uL (4.8-10.8)
[2025-01-15 22:29] LABS: Alanine Aminotransferase 20 U/L (0-40); Albumin Level 4.3 g/dL (3.5-5.0); Alkaline Phosphatase 65 U/L (39-117); Anion Gap 14 (12-20); Aspartate Amino Transferase 35 U/L (5-37); Blood Urea Nitrogen 37 mg/dL (9-16); Calcium 9.9 mg/dL (8.4-10.2); Carbon Dioxide 26 mmol/L (22-29); Chloride 104 mmol/L (96-108); Creatinine Clr Calc Pharmacy 38.4; Estimated Glomerular Filt Rate 48; Potassium 4.2 mmol/L (3.3-5.1); Sodium 140 mmol/L (135-145); Total Protein 7.0 g/dL (6.5-8.0)
--- OUTSIDE RECORDS SUMMARY | 2025-01-15 22:36 | XMS_ITS | Clinical Summary ---
Author Organization [facility], Address [address] [place] [address] [place] [address] Phone Care Team Providers Care Chief Clerk Name Role Phone Paris Barboza Primary Care Provider [phone] Allergies Active Allergy Reactions Criticality Noted Date [...] Refill [facility] [address] [place] [phone] Eduardo Antonio MD from Last 3 Months [...] Visit [facility] [address] [place] [phone] Eduardo Antonio MD [address] [place] [address] [place] [phone] Health Maintenance Due Date Last Done Comments [...] age to complete this topic Insurance Medicare [facility] Care Teams Chief Clerk Relationship Specialty Start Date End Date Paris Barboza [address] [place] [address] PCP - General 09/05/24
--- OUTSIDE RECORDS SUMMARY | 2025-01-15 22:36 | XMS_ITS | Encounter Summary ---
Author Organization [facility] Address [address] [place] [address] Phone Care Team Providers Care Hoof Trimmer Name Role Phone JabariParis Primary Care Provider [phone] Encounter Details Date Type Department Care Team (Late st Contact Info) Description 09/02/2024 Documentation Only [facility] [address] [place] [address] Janelle Britt [address] [place] [address] Social History Tobacco Use Types [...] Visit [facility] [address] Simone AMEZQUITA [address] [place] [phone] Eduardo Antonio MD [address] [place] [address] [place] [phone] documented as of this encounter Visit Diagnoses Not on filedocumented in this encounter Care Teams Hoof Trimmer Relationship Specialty Start Date End Date Paris Barboza [address] [place] [address] PCP - General 09/05/24 documented as of this encounter
--- OUTSIDE RECORDS SUMMARY | 2025-01-15 22:36 | XMS_ITS | Encounter Summary ---
Author Organization [facility] Address [address] [place] [address] Phone Care Team Providers Care Tool Maker Name Role Phone JabariParis Primary Care Provider [phone] Encounter Details Date Type Department Care Team (Late st Contact Info) Description 08/30/2024 Documentation Only [facility] [address] [place] [address] Janelle Britt [address] [place] [phone] Social History Tobacco Use Types Packs/Day [...] Visit [facility] [address] Simone AMEZQUITA [address] [place] [phone] Eduardo Antonio MD [address] [place] [address] [place] [phone] documented as of this encounter Visit Diagnoses Not on filedocumented in this encounter Care Teams Tool Maker Relationship Specialty Start Date End Date Paris Barboza [address] [place] [address] PCP - General 09/05/24 documented as of this encounter
--- OUTSIDE RECORDS SUMMARY | 2025-01-15 22:36 | XMS_ITS | Encounter Summary ---
Author Organization [facility] Address [address] [place] [address] Phone Care Team Providers Care Clamp Operator Name Role Phone JabariParis Primary Care Provider [phone] Encounter Details Date Type Department Care Team (Late st Contact Info) Description 09/02/2024 Documentation Only [facility] [address] [place] [address] Janelle Britt [address] [place] [address] Social History Tobacco Use Types [...] Visit [facility] [address] Simone AMEZQUITA [address] [place] [phone] Eduardo Antonio MD [address] [place] [address] [place] [phone] documented as of this encounter Visit Diagnoses Not on filedocumented in this encounter Care Teams Clamp Operator Relationship Specialty Start Date End Date Paris Barboza [address] [place] [address] PCP - General 09/05/24 documented as of this encounter
--- OUTSIDE RECORDS SUMMARY | 2025-01-15 22:36 | XMS_ITS | Encounter Summary ---
Author Organization [facility] Address [address] [place] [address] Phone Care Team Providers Care Preparation Supervisor Canning Name Role Phone JabariParis Primary Care Provider [phone] Encounter Details Date Type Department Care Team (Late st Contact Info) Description 09/02/2024 Documentation Only [facility] [address] [place] [address] Janelle Britt [address] [place] [address] Social History Tobacco Use Types [...] Visit [facility] [address] Simone AMEZQUITA [address] [place] [phone] Eduardo Antonio MD [address] [place] [address] [place] [phone] documented as of this encounter Visit Diagnoses Not on filedocumented in this encounter Care Teams Preparation Supervisor Canning Relationship Specialty Start Date End Date Paris Barboza [address] [place] [address] PCP - General 09/05/24 documented as of this encounter
--- OUTSIDE RECORDS SUMMARY | 2025-01-15 22:36 | XMS_ITS | Encounter Summary ---
Author Organization [facility] Address [address] [place] [address] Phone Care Team Providers Care Front Desk Person Name Role Phone JabariParis Primary Care Provider [phone] Encounter Details Date Type Department Care Team (Late st Contact Info) Description 02/27/2024 Documentation Only [facility] [address] [place] [address] Janelle Britt [address] [place] [phone] Social History Tobacco Use Types Packs/Day [...] Visit [facility] [address] Simone AMEZQUITA [address] [place] [phone] Eduardo Antonio MD [address] [place] [address] [place] [phone] documented as of this encounter Visit Diagnoses Not on filedocumented in this encounter Care Teams Front Desk Person Relationship Specialty Start Date End Date Paris Barboza [address] [place] [address] PCP - General 09/05/24 documented as of this encounter
--- OUTSIDE RECORDS SUMMARY | 2025-01-15 22:36 | XMS_ITS | Encounter Summary ---
Author Organization [facility] Address [address] [place] [address] Phone Care Team Providers Care Wall Cleaner Name Role Phone JabariParis Primary Care Provider [phone] Encounter Details Date Type Department Care Team (Late st Contact Info) Description 09/02/2024 Documentation Only [facility] [address] [place] [address] Janelle Britt [address] [place] [address] Social History Tobacco Use Types [...] Visit [facility] [address] Simone AMEZQUITA [address] [place] [phone] Eduardo Antonio MD [address] [place] [address] [place] [phone] documented as of this encounter Visit Diagnoses Not on filedocumented in this encounter Care Teams Wall Cleaner Relationship Specialty Start Date End Date Paris Barboza [address] [place] [address] PCP - General 09/05/24 documented as of this encounter
--- OUTSIDE RECORDS SUMMARY | 2025-01-15 22:36 | XMS_ITS | Encounter Summary ---
Author Organization [facility], Address [address] [place] [address] Phone Care Team Providers Care Waste Duster Name Role Phone Jabari Paris Primary Care Provider [phone] Encounter Details Date Type Department Care Team (Late st Contact Info) Description 11/18/2022 Documentation Only [facility] Norris [address] [place] [phone] Nica Sher FNP [address] [place] [phone] Social History Tobacco Use Types Packs/Day Years [...] Visit [facility] Norris [address] [place] [phone] Eduardo Antonio MD [address] [place] [phone] documented as of this encounter Visit Diagnoses Not on filedocumented in this encounter Care Teams Waste Duster Relationship Specialty Start Date End Date JabariNadeena [address] [place] [address] PCP - General 09/05/24 documented as of this encounter
--- OUTSIDE RECORDS SUMMARY | 2025-01-15 22:36 | XMS_ITS | Encounter Summary ---
Author Organization [facility] [place], Address [address] [place] [address] Phone Care Team Providers Care Phlebotomy Services Technician Name Role Phone JabariParis Primary Care Provider [phone] Encounter Details Date Type Department Care Team (Late st Contact Info) Description 03/09/2023 Documentation Only [facility] [address] Simone [address] [place] [phone] Eduardo Antonio MD [address] [place] [address] [place] [address] Social History Tobacco Use Types [...] Visit [facility] [address] [place] [phone] Eduardo Antonio MD [address] [place] [address] [place] [address] documented as of this encounter Visit Diagnoses Not on filedocumented in this encounter Care Teams Phlebotomy Services Technician Relationship Specialty Start Date End Date Paris Barboza [address] [place] [address] PCP - General 09/05/24 documented as of this encounter
--- OUTSIDE RECORDS SUMMARY | 2025-01-15 22:36 | XMS_ITS | Encounter Summary ---
Author Organization [facility] Address [address] [place] [address] Phone Care Team Providers Care Spar Machine Operator Helper Name Role Phone JabariParis Primary Care Provider [phone] Encounter Details Date Type Department Care Team (Late st Contact Info) Description 11/03/2022 Documentation Only [facility] [address] [place] [phone] Nica Sher FNP [address] [place] [phone] Social History Tobacco Use Types Packs/Day Years [...] Visit [facility] [address] Simone AMEZQUITA [address] [place] [phone] Eduardo Antonio MD [address] [place] [address] [place] [phone] documented as of this encounter Visit Diagnoses Not on filedocumented in this encounter Care Teams Spar Machine Operator Helper Relationship Specialty Start Date End Date Paris Barboza [address] [place] [address] PCP - General 09/05/24 documented as of this encounter
--- OUTSIDE RECORDS SUMMARY | 2025-01-15 22:36 | XMS_ITS | Encounter Summary ---
Author Organization [facility] Address [address] [place] [address] Phone Care Team Providers Care Supply Chain Analyst Name Role Phone JabariParis Primary Care Provider [phone] Encounter Details Date Type Department Care Team (Late st Contact Info) Description 02/28/2024 Documentation Only [facility] [address] [place] [address] Janelle Britt [address] [place] [phone] Social History Tobacco Use Types Packs/Day [...] Visit [facility] [address] Simone AMEZQUITA [address] [place] [phone] Eduardo Antonio MD [address] [place] [address] [place] [phone] documented as of this encounter Visit Diagnoses Not on filedocumented in this encounter Care Teams Supply Chain Analyst Relationship Specialty Start Date End Date Paris Barboza [address] [place] [address] PCP - General 09/05/24 documented as of this encounter
--- OUTSIDE RECORDS SUMMARY | 2025-01-15 22:36 | XMS_ITS | Encounter Summary ---
Author Organization [facility] Address [address] [place] [address] Phone Care Team Providers Care Patent Clerk Name Role Phone JabariParis Primary Care Provider [phone] Encounter Details Date Type Department Care Team (Late st Contact Info) Description 09/02/2024 Documentation Only [facility] [address] [place] [address] Janelle Britt [address] [place] [phone] Social History Tobacco Use Types [...] Visit [facility] [address] Simone AMEZQUITA [address] [place] [phone] Eduardo Antonio MD [address] [place] [address] [place] [phone] documented as of this encounter Visit Diagnoses Not on filedocumented in this encounter Care Teams Patent Clerk Relationship Specialty Start Date End Date Paris Barboza [address] [place] [address] PCP - General 09/05/24 documented as of this encounter
--- OUTSIDE RECORDS SUMMARY | 2025-01-15 22:36 | XMS_ITS | Encounter Summary ---
Author Organization [facility] Address [address] [place] [address] Phone Care Team Providers Care Cotton Acreage Measurer Name Role Phone JabariParis Primary Care Provider [phone] Encounter Details Date Type Department Care Team (Late st Contact Info) Description 08/22/2023 Documentation Only [facility] [address] [place] [address] Janelle Britt [address] [place] [phone] Social History Tobacco Use Types Packs/Day [...] Visit [facility] [address] Simone AMEZQUITA [address] [place] [phone] Eduardo Antonio MD [address] [place] [address] [place] [phone] documented as of this encounter Visit Diagnoses Not on filedocumented in this encounter Care Teams Cotton Acreage Measurer Relationship Specialty Start Date End Date Paris Barboza [address] [place] [address] PCP - General 09/05/24 documented as of this encounter
--- OUTSIDE RECORDS SUMMARY | 2025-01-15 22:36 | XMS_ITS | Encounter Summary ---
Author Organization [facility] [place], Address [address] [place] [address] Phone Care Team Providers Care Burglar Alarm Superintendent Name Role Phone JabariParis Primary Care Provider [phone] Encounter Details Date Type Department Care Team (Late st Contact Info) Description 08/21/2023 Documentation Only [facility] [place] [address] Simone [address] [place] [phone] Janelle Britt [address] [place] [phone] Social History Tobacco Use Types Packs/Day Years [...] Visit [facility] [place] Norris [address] [place] [phone] Eduardo Antonio MD [address] [place] [phone] documented as of this encounter Visit Diagnoses Not on filedocumented in this encounter Care Teams Burglar Alarm Superintendent Relationship Specialty Start Date End Date Paris Barboza [address] [place] [address] PCP - General 09/05/24 documented as of this encounter
--- NOTE | 2025-01-15 23:21 | PC.NURSE ---
Assumed care at 23:00 from ANNA Welch.
--- NOTE | 2025-01-15 23:31 | PC.NURSE ---
provider into discuss plan care, pt given sandwich, drink and applesauce.
--- NOTE | 2025-01-16 00:31 | ED.GENADULT ---
HPI - General Adult General Chief complaint: General Medical Stated complaint: high blood sugar Time Seen by Provider: 01/15/25 23:19 Source: patient, family, RN notes reviewed and old records reviewed Mode of arrival: ambulatory Limitations: no limitations History of Present Illness ED Provider: Nasim HPI narrative: This 79-year-old male past medical history significant for type 2 diabetes presents for evaluation of high blood sugar. Patient reports that he checked his blood sugar today for the 1st time in several months and it was ?220. ? He reports that he has been on metformin for quite some time in his A1c was around 7.6. Over the last year he had questions for his primary doctor and was asking about Trulicity. He was ultimately transitioned from metformin to Trulicity and his A1c increased to 9.2 Due to this increased he discontinuing the Trulicity and went back to metformin in his most recent A1c was around 8.6 He was looking up the symptoms of high blood sugar on the Internet today and decided to check his sugar and found it to be high. He has no complaints or concerns at this time pain He has no symptoms but presented to the ER due to his blood sugar monitor telling him his glucose was 220. He also takes his basal insulin at 10:00 p.m. every night, 14 units. He reports taking this prior to coming to the ED today He has an appointment with his primary doctor this coming Monday Related Data Home Medications ?Medication ?Instructions ?Recorded ?Confirmed amlodipine 10 mg tablet 10 mg PO DAILY 08/22/24 12/04/24 atorvastatin 80 mg tablet 80 mg PO DAILY 08/22/24 12/04/24 chlorthalidone 25 mg tablet 25 mg PO DAILY 08/22/24 12/04/24 dulaglutide 0.75 mg/0.5 mL 0.75 mg subcut QWEEK 08/22/24 12/04/24 subcutaneous pen injector (Trulicity) empagliflozin 25 mg tablet 25 mg PO QAM 08/22/24 12/04/24 (Jardiance) finasteride 5 mg tablet 5 mg PO DAILY 08/22/24 12/04/24 glipizide 10 mg tablet 10 mg PO DAILY 08/22/24 12/04/24 insulin glargine 100 unit/mL (3 unit subcut 08/22/24 mL) subcutaneous pen (Basaglar KwikPen U-100 Insulin) lisinopril 40 mg tablet 40 mg PO DAILY 08/22/24 12/04/24 metformin 500 mg tablet 500 mg PO DAILY 08/22/24 12/04/24 metoprolol tartrate 50 mg tablet 50 mg PO BID 08/22/24 12/04/24 nitrofurantoin 1 cap PO BID 08/22/24 12/04/24 monohydrate/macrocrystals 100 mg capsule pen needle, diabetic 32 gauge x #1,200 ea 08/22/24 sulfamethoxazole 800 1 tab PO BID 08/22/24 12/04/24 mg-trimethoprim 160 mg tablet tamsulosin 0.4 mg capsule 0.4 mg PO DAILY 08/22/24 12/04/24 Allergies Allergy/AdvReac Type Severity Reaction Status Date / Time amoxicillin (AMOXICILLIN) Allergy Unknown ANGIOEDEMA Verified 01/15/25 21:49 Penicillins (PENICILLINS) Allergy Unknown ANGIOEDEMA Verified 01/15/25 21:49 Review of Systems Constitutional: Constitutional: Denies chills and Denies headache(s) Eyes: Eyes: Denies blurry vision ENT: Denies dizziness and Denies headache(s) Cardiovascular: Cardiovascular: Denies chest pain and Denies dyspnea on exertion Respiratory: Respiratory: Denies cough and Denies dyspnea on exertion Gastrointestinal: Gastrointestinal: Denies abdominal pain, Denies nausea and Denies vomiting Musculoskeletal: Musculoskeletal: Denies back pain Integumentary/Breasts: Skin/Breast: Denies rash Neurologic: Denies dizziness and Denies headache(s) Psychiatric: Psychiatric: Denies anxiety [facility] Past Medical History Medical History Diabetes Renal artery stenosis PAD (peripheral artery disease) Surgical History History of repair of left hip joint Social History Social History Are you a primary progressive care nurse to a significant other at home: No Do you presently have visiting nurse or other home services: No Patient Tobacco Use Status: Former Tobacco user Smoked in Last 30 Days: No Second Hand Smoke Exposure: No Use of substances other than those prescribed or required for medical reasons: No Advance Directives: No Advance Directives Information Provided: Yes Physical Exam ED Vital Signs: Vital Signs - 24 hr 01/15/25 21:49 Temperature 97.9 F Pulse Rate 72 Respiratory Rate 16 Blood Pressure 145/65 H Pulse Oximetry 97 Oxygen Delivery Method Room Air BMI result Body Mass Index 22.9 Const General: healthy appearing, comfortable, no acute distress, alert and awake Nutritional Appearance: well nourished Orientation/consciousness: patient oriented x3 HENMT Head: Yes normocephalic and Yes atraumatic Eyes Eyelids: Yes eyelids normal Conjunctivae: conjunctivae normal Sclerae: sclerae normal Corneas: corneas normal Pupils: Equal, round and reactive pupils present EOM: EOMs intact bilaterally Neck Neck: Yes full ROM Resp Effort & Inspection: normal respiratory effort, able to speak in complete sentences and not labored Skin General skin exam: elasticity normal Neuro General: patient oriented x3 Cranial nerves: Yes Equal, round and reactive pupils present and Yes Bilaterally intact EOM present Cognition (Neuro): normal cognition Extrem Other: Moving all extremities well without any obvious deformities Medical Decision Making Medical Decision Making [facility] Narrative: 79-year-old male presents for evaluation of elevated blood sugar. He reports that he checked his sugar with his home monitor prior to coming to ED and it was 220. He reports that he has not checked his glucose with that monitor for at least 6 months. Therefore he called his son who brought him to the ER. The patient is asymptomatic at this time but he is quite anxious about his high blood sugar and his treatment regimen. His glucose in the ER today was 75 on his labs. I am not entirely sure that his glucose monitor was accurate or truly 220 as it has not been calibrated and quite some time and he has not been using it for 6 months. However given his glucose reportedly dropped from 220 to 75 he was provided with a tuna sandwich, angelito ramsey. His repeat glucose was down to 63, he remains asymptomatic, but I would like to ensure that his glucose is stabilized or increasing prior to his discharge. Differential Diagnosis Differential Diagnoses: The differential diagnosis associated with the presentation includes Hyperglycemia Type 2 diabetes Medication noncompliance Anxiety DKA Admission/Observation Consideration of admission/observation: Escalation of care including admission/observation considered Lab Data [facility] Lab Attestation statement: I reviewed the patient's lab results. No leukocytosis or anemia. Normal platelet count. No significant electrolyte abnormalities warranting dimension. The patient's BUN is elevated to 39 and a creatinine of 1.43, this is consistent from his labs from last month and likely his new baseline. Random glucose is 75 01/15/25 22:07 01/15/25 22:07 Labs: Lab Results 01/15/25 Range/Units 22:07 WBC 9.5 (4.8-10.8) X10*3/uL RBC 5.25 (4.60-5.80) X10*6/uL Hgb 15.4 (14.0-18.0) g/dl Hct 43.8 (42.0-52.0) % MCV 83.4 (80.0-98.0) fL MCH 29.3 (27.0-33.0) pg MCHC 35.2 (31.0-36.0) g/dl RDW 14.7 (11.0-16.0) % Plt Count 213 (160-400) X10*3/uL MPV 9.8 (9.4-12.4) fL Immature Gran % (Auto) 0.9 H (0.0-0.4) % Neut % (Auto) 69.8 (45-73) % Lymph % (Auto) 19.5 L (20-40) % Rowan % (Auto) 7.5 (2-11) % Eos % (Auto) 1.9 (0-4) % Baso % (Auto) 0.4 (0-2) % Lymph # (Auto) 1.9 (1.2-4.9) X10*3/uL Rowan # (Auto) 0.7 (0.1-1.2) X10*3/uL Eos # (Auto) 0.2 (0.0-0.4) X10*3/uL Baso # (Auto) 0.0 (0.0-0.2) X10*3/uL Abs Immat Gran (auto) 0.09 H (0.00-0.03) X10*3/uL Absolute Neuts (auto) 6.6 (2.0-8.3) x10*3/uL Absolute Nucleated RBC 0.000 (0.0-0.012) X10*3/uL Nucleated RBC % (auto) 0.0 (0.0-0.2) /100WBC Sodium 140 (135-145) mmol/L Potassium 4.2 (3.3-5.1) mmol/L Chloride 104 (96-108) mmol/L Carbon Dioxide 26 (22-29) mmol/L Anion Gap 14 (12-20) BUN 37 H (9-16) mg/dL Creatinine 1.43 H (0.5-1.4) mg/dL Estim Creat Clear Calc 38.4 Estimated GFR 48 Random Glucose 75 (60-115) mg/dL Calcium 9.9 (8.4-10.2) mg/dL Total Bilirubin 0.7 (0.0-1.0) mg/dL AST 35 (5-37) U/L ALT 20 (0-40) U/L Alkaline Phosphatase 65 (39-117) U/L Total Protein 7.0 (6.5-8.0) g/dL Albumin 4.3 (3.5-5.0) g/dL Discharge Plan Discharge Clinical Impression: Diabetes Patient Disposition: Home, Self-Care Instructions: Diabetes and Nutrition (ED), How to Check your Blood Sugar (ED), Type 2 Diabetes Management for Adults (ED) Additional Instructions: I recommend that you take all your medications as prescribed pain Check your blood glucose once daily at the same time every day either before you eat breakfast or before going to bed Keep a log of your glucose readings. I recommend that you get your glucose monitor calibrated as I am not sure it is functioning correctly Prescriptions: No Action metoprolol tartrate 50 mg tablet 50 mg PO BID atorvastatin 80 mg tablet 80 mg PO DAILY lisinopril 40 mg tablet 40 mg PO DAILY amlodipine 10 mg tablet 10 mg PO DAILY insulin glargine [Kerryaglmargaret Andujar U-100 Insulin] 100 unit/mL (3 mL) insulin pen subcut Jardiance 25 mg tablet 25 mg PO QAM finasteride 5 mg tablet 5 mg PO DAILY tamsulosin 0.4 mg capsule 0.4 mg PO DAILY Trulicity 0.75 mg/0.5 mL pen injector 0.75 mg subcut QWEEK chlorthalidone 25 mg tablet 25 mg PO DAILY glipizide 10 mg tablet 10 mg PO DAILY nitrofurantoin monohyd/m-cryst 100 mg capsule 1 cap PO BID sulfamethoxazole-trimethoprim 800-160 mg tablet 1 tab PO BID metformin 500 mg tablet 500 mg PO DAILY (DME) pen needle, diabetic 32 gauge x 5/32 needle See Rx Instructions .ROUTE .[facility] Qty: 1200 Rx Instructions: As directed Print Language: Portuguese
[2025-01-16 00:32] LABS: Glucose, Whole Blood 63 mg/dL (60-115)
[2025-01-16 01:14] LABS: Glucose, Whole Blood 107 mg/dL (60-115)
[2025-01-16 01:19] VITALS: BP 100/54; PULSE 79; RESP 16; TEMP 36.7; O2SAT 100
--- NOTE | 2025-01-16 01:27 | PC.NURSE ---
Reviewed discharge instructions with pt, pt verbalized understanding, no sign of distress upon discharge, pt had a steady gait, discharge home with his son.
[2025-01-16 01:29] VITALS: BP 100/54; PULSE 79; RESP 16; TEMP 36.7; O2SAT 100
[2025-01-16 05:26] LABS: Hemoglobin A1C 179.6289 umol/L; Total Hemoglobin (HGBA1C) 3956.0489 umol/L
== END 2025-01-16 01:29 | disposition home or self-care (01) ==
PROVIDERS: Physician Assistant; Emergency Provider Student in an Organized Health Care Education/Training Program
DX: E11.65 Type 2 diabetes mellitus with hyperglycemia (principal); Z79.899 Other long term (current) drug therapy; Z79.4 Long term (current) use of insulin
CPT/HCPCS: 36415; 80053; 82947; 83036; 85025; 99283; 99284